=== PATIENT | male | born 1935 | race Caucasian/White ===

== ENCOUNTER 2018-09-18 12:35 | Emergency (ER) | payer MEDICARE, OTHER ==
[~2018-09-18 12:35] MED LIST: ACE325 PO; ALPH100C PO; ALPH50CA5 PO; ASCO-201 PO; CELE-1 PO; CINN500C12 PO; DOC100 PO; DORZ10DR3 OP; ENOX80DI8 SQ; EZET1TAB53 PO; FISH OIL 1,2001 CAP PO; FISH1CAP15 PO; GARL10005 PO; GINK60CA13 PO; GLUC-130 PO; GLUC-198 PO; GLUC1TAB25 PO; GLUT500T PO; ISOM60 PO; ISOS60TA PO; LEVE-14 PO; LEVE500T88 PO; LOR5/325 PO; LOS50 PO; LOSA50TA80 PO; LUTE10TA3 PO; LUTE6CAP11 PO; METO-1 PO; METO-253 PO; MIR PO; MOM PO; MULT-820 PO; MULT-865 PO; NEURO PS PO; OMEG12002 PO; S-AD200T5 PO; SIMV-44 PO; SIMV-54 PO; ST.300CA17 PO; TADA10TA14 PO; TRAV2.5D4 OP; TRIA-20 PO; TRIA1CAP85 PO; TURM500C7 PO; UBID100C33 PO; UBID100C9 PO; VINPOCETINE; VIT1TABL82 PO; WAR5 PO; WARF4TAB47 PO; WARF5TAB23 PO; [UNRECOGNIZED DRUG - CODE] OU; [UNRECOGNIZED DRUG - CODE] PO; [UNRECOGNIZED DRUG - CODE] PO; [UNRECOGNIZED DRUG - OTHER] PO; [UNRECOGNIZED DRUG - OTHER] PO
--- NOTE | 2018-09-18 12:49 | ER Report ---
History and Physical Time Seen By MD: 12:47 HPI/ROS CHIEF COMPLAINT: Loss of left peripheral vision possible stroke HISTORY OF PRESENT ILLNESS: 82-year-old male comes emergency Department a complaint of left-sided visual loss in the left peripheral gaze patient states that he had awoke this morning with normal vision notice shortly upon hours after awakening that his vision became change in his left I unable to see his left peripheral vision patient denies any other symptoms at that time. Patient is a history of a major stroke with resultant aphasia and speech difficulties about 12 years ago some mild TIAs intermittently subsequently since then no chest pain shortness of breath or additional complaints noted aside for visual changes no other focal complaints was given drive himself to the pulmonary physical therapist when his daughter lives that he needed of the operative the emergency room REVIEW OF SYSTEMS: Respiratory: No cough, no dyspnea. Cardiovascular: No chest pain, no palpitations. Gastrointestinal: No vomiting, no abdominal pain. Musculoskeletal: No back pain. Remainder of the 14 system rev: Yes Allergies: Coded Allergies: No Known Drug Allergies (Unverified , 08/10/15) Home Meds Active Scripts Losartan Potassium (LOSARTAN POTASSIUM) 50 Mg Tablet, 1 TAB PO QDAY, #30 TAB 11 Refills Prov:SHONA HALLMAN MD 10/04/16 Levetiracetam (KEPPRA) 500 Mg Tablet, 0.5 TAB PO BID, #90 TAB 3 Refills Prov:SHONA HALLMAN MD 09/06/16 Warfarin Sodium (WARFARIN SODIUM) 5 Mg Tablet, 0.5-1 TAB PO QDAY, #65 TAB 3 Refills [place] 5 MG, M 2.5 MG, Tu 5 MG, W 2.5 MG, Th 5 MG, F 2.5 MG, Sa 5 MG Prov:SHONA HALLMAN MD 08/22/16 Simvastatin (SIMVASTATIN) 40 Mg Tablet, 1 TAB PO HS, #90 TAB 4 Refills Prov:SHONA HALLMAN MD 06/08/16 Metoprolol Tartrate (METOPROLOL TARTRATE) 50 Mg Tab, 0.5 TAB PO BID, #90 TAB 4 Refills Prov:SHONA HALLMAN MD 03/02/16 Triamterene/Hydrochlorothiazid (TRIAMTERENE-HCTZ 37.5-25 MG CP) 1 Each Capsule, 0.5 TAB PO QAM, #45 CAPSULE 1 Refill Prov:SHONA HALLMAN MD 02/21/16 Tadalafil (CIALIS) 10 Mg Tablet, 10 MG PO QDAY PRN for sexual activity, #6 TAB 1 Refill Prov:SHONA HALLMAN MD 08/20/14 Reported Medications Alpha Lipoic Acid (ALPHA LIPOIC ACID) 100 Mg Capsule, 150 MG PO DAILY, CAPSULE 06/26/14 Glutamine (L-GLUTAMINE) 500 Mg Tablet, 1 TAB PO DAILY 06/26/14 Turmeric Root Extract (TURMERIC) 500 Mg Capsule, 1 CAP PO DAILY, CAPSULE 06/26/14 Multivitamin (DAILY MULTIPLE VITAMIN) 1 Each Tablet, 1 TAB PO DAILY 06/26/14 Isosorbide Mononitrate (IMDUR) 60 Mg Tab.er.24h, 1 TAB PO DAILY 06/26/14 Lutein (LUTEIN) 10 Mg Tablet, 1 TAB PO DAILY 06/26/14 Glucosamine/D3/Boswellia Augustina (GLUCOSAMINE COMPLEX TABLET) 1 Each Tablet, 1 TAB PO DAILY 06/26/14 Ubidecarenone (CO Q-10) 100 Mg Capsule, 1 CAP PO DAILY, CAPSULE 06/26/14 Fish Oil/Dha/Epa (FISH OIL 1,200 MG FISH OIL) 1 Each Capsule, 1 CAP PO DAILY, CAPSULE 06/26/14 Reviewed Nurses Notes: Yes Old Medical Records Reviewed: Yes Hx Smoking: No Smoking Status: Never Smoker Hx Alcohol Use: Yes Constitutional Vital Sign - Last 24 Hours 09/18/18 09/18/18 09/18/18 09/18/18 12:35 12:42 12:56 13:00 Temp 97.8 Pulse 67 Resp 18 B/P (MAP) 125/74 163/118 (133) 132/92 (105) 130/82 (98) Pulse Ox 90 O2 Delivery Room Air 09/18/18 09/18/18 09/18/18 09/18/18 13:05 13:15 13:20 13:50 Pulse 63 64 58 Resp 10 17 13 B/P (MAP) 124/75 (91) Pulse Ox 90 87 O2 Delivery Room Air Room Air 09/18/18 09/18/18 09/18/18 09/18/18 13:55 14:10 14:14 14:25 Pulse 60 62 Resp 15 17 24 B/P (MAP) 137/85 (102) Pulse Ox 91 92 92 1/16/19 1/16/19 1/16/19 1/16/19 14:30 14:35 14:45 14:50 Pulse 59 57 Resp 23 10 B/P (MAP) 136/95 (109) 134/99 (111) Pulse Ox 91 95 O2 Delivery Nasal Cannula O2 Flow Rate 2 09/18/18 09/18/18 09/18/18 09/18/18 15:00 15:05 15:15 15:20 Pulse 56 Resp 18 13 B/P (MAP) 136/109 (118) 125/93 (104) Pulse Ox 90 87 O2 Delivery Nasal Cannula Room Air O2 Flow Rate 2 Physical Exam General Appearance: The patient is alert, has no immediate need for airway protection and no current signs of toxicity. [ ] Eyes: Pupils equal and round no injection. Respiratory: Chest is non tender, lungs are clear to auscultation. Cardiac: regular rate and rhythm [ ] Gastrointestinal: Abdomen is soft and non tender, no masses, bowel sounds normal. Musculoskeletal: Neck: Neck is supple and non tender. Extremities have full range of motion and are non tender. Skin: No rashes or lesions. Neuro examination patient with a left sided gaze loss in the left hemisphere otherwise neurovascular intact cranial nerves II through XII intact no focal neurological deficits noted otherwise DIFFERENTIAL DIAGNOSIS: After history and physical exam differential diagnosis was considered for stroke TIA Medical Decision Making Data Points Result Diagram: 09/18/18 1301 09/18/18 1301 Laboratory Hematology Test 09/18/18 13:01 09/18/18 13:36 Red Blood Count 5.52 M/uL (4.00-5.60) Mean Corpuscular Volume 93.8 fL (80.0-96.0) Mean Corpuscular Hemoglobin 31.3 pg (26.0-33.0) Mean Corpuscular Hemoglobin Concent 33.4 g/dL (32.0-36.0) Red Cell Distribution Width 14.6 % (11.5-14.5) Mean Platelet Volume 9.2 fL (7.2-11.1) Neutrophils (%) (Auto) 73.5 % (39.4-72.5) Lymphocytes (%) (Auto) 17.4 % (17.6-49.6) Monocytes (%) (Auto) 7.4 % (4.1-12.4) Eosinophils (%) (Auto) 1.0 % (0.4-6.7) Basophils (%) (Auto) 0.7 % (0.3-1.4) Nucleated RBC Relative Count (auto) 0.1 /100WBC Neutrophils # (Auto) 5.5 K/uL (2.0-7.4) Lymphocytes # (Auto) 1.3 K/uL (1.3-3.6) Monocytes # (Auto) 0.6 K/uL (0.3-1.0) Eosinophils # (Auto) 0.1 K/uL (0.0-0.5) Basophils # (Auto) 0.1 K/uL (0.0-0.1) Nucleated RBC Absolute Count (auto) 0.01 K/uL Sodium Level 137 mmol/L (137-145) Potassium Level 4.8 mmol/L (3.5-5.0) Chloride Level 100 mmol/L (98-107) Carbon Dioxide Level 30 mmol/L (22-30) Blood Urea Nitrogen 28 mg/dl (9-21) Creatinine 1.50 mg/dl (0.66-1.25) Glomerular Filtration Rate Calc 44.6 Random Glucose 109 mg/dl (75-110) Calcium Level 9.3 mg/dl (8.4-10.2) Total Bilirubin 0.9 mg/dl (0.2-1.3) Aspartate Amino Transf (AST/SGOT) 36 U/L (0-35) Alanine Aminotransferase (ALT/SGPT) 31 U/L (0-56) Alkaline Phosphatase 76 U/L (0-126) Troponin I 0.018 ng/ml Total Protein 7.3 g/dl (6.3-8.2) Albumin 4.2 g/dl (3.5-5.0) Prothrombin Time 20.0 seconds (12.0-14.4) Prothromb Time International Ratio 1.68 Activated Partial Thromboplast Time 32 seconds (23-35) Chemistry Test 09/18/18 13:01 09/18/18 13:36 White Blood Count 7.5 k/uL (4.5-11.0) Red Blood Count 5.52 M/uL (4.00-5.60) Hemoglobin 17.3 g/dL (14.0-18.0) Hematocrit 51.8 % (42.0-52.0) Mean Corpuscular Volume 93.8 fL (80.0-96.0) Mean Corpuscular Hemoglobin 31.3 pg (26.0-33.0) Mean Corpuscular Hemoglobin Concent 33.4 g/dL (32.0-36.0) Red Cell Distribution Width 14.6 % (11.5-14.5) Platelet Count 180 K/uL (150-450) Mean Platelet Volume 9.2 fL (7.2-11.1) Neutrophils (%) (Auto) 73.5 % (39.4-72.5) Lymphocytes (%) (Auto) 17.4 % (17.6-49.6) Monocytes (%) (Auto) 7.4 % (4.1-12.4) Eosinophils (%) (Auto) 1.0 % (0.4-6.7) Basophils (%) (Auto) 0.7 % (0.3-1.4) Nucleated RBC Relative Count (auto) 0.1 /100WBC Neutrophils # (Auto) 5.5 K/uL (2.0-7.4) Lymphocytes # (Auto) 1.3 K/uL (1.3-3.6) Monocytes # (Auto) 0.6 K/uL (0.3-1.0) Eosinophils # (Auto) 0.1 K/uL (0.0-0.5) Basophils # (Auto) 0.1 K/uL (0.0-0.1) Nucleated RBC Absolute Count (auto) 0.01 K/uL Glomerular Filtration Rate Calc 44.6 Calcium Level 9.3 mg/dl (8.4-10.2) Total Bilirubin 0.9 mg/dl (0.2-1.3) Aspartate Amino Transf (AST/SGOT) 36 U/L (0-35) Alanine Aminotransferase (ALT/SGPT) 31 U/L (0-56) Alkaline Phosphatase 76 U/L (0-126) Troponin I 0.018 ng/ml Total Protein 7.3 g/dl (6.3-8.2) Albumin 4.2 g/dl (3.5-5.0) Prothrombin Time 20.0 seconds (12.0-14.4) Prothromb Time International Ratio 1.68 Activated Partial Thromboplast Time 32 seconds (23-35) Coagulation Test 09/18/18 13:36 Prothrombin Time 20.0 seconds Prothromb Time International Ratio 1.68 Activated Partial Thromboplast Time 32 seconds ED Course/Re-evaluation ED Course ED clinical course medical decision-making a 2-year-old male who comes in with acute strokelike symptoms with left sided gaze hemic hemiparesis absence of left gaze visual field CT scan shows a right posterior occipital infarct confirmed and CTA due to the timing of it and the position of it is unable to receive either TPA or clot retrieval I will be transferring him to a higher level care to a stroke center for further delineation workup Decision to Disposition Date: Sep 18, 2018 Decision to Disposition Time: 15:33 Depart Departure Latest Vital Signs Vital Signs Date Time Temp Pulse Resp B/P (MAP) Pulse Ox O2 Delivery O2 Flow Rate FiO2 09/18/18 15:20 13 87 Room Air 09/18/18 15:15 125/93 (104) 09/18/18 15:05 56 2 09/18/18 12:35 97.8 Impression: Primary Impression: CVA (cerebrovascular accident) Condition: Improved Disposition: XFER TO ACUTE CARE HOSPITAL Referrals: SHONA HALLMAN MD (PCP) SUSANA MARTINEZ MD Sep 18, 2018 12:49
--- NOTE | 2018-09-18 12:54 | EKG ---
FACILITY: [facility] PATIENT NAME: MINOO DELUNA : [id number] MR: [id number] V: [id number] EXAM DATE: ORDERING PHYSICIAN: SUSANA MARTINEZ TECHNOLOGIST: EMRE Moffett Reason : STROKE Blood Pressure : / mmHG Vent. Rate : 067 BPM Atrial Rate : 067 BPM P-R Int : 236 ms QRS Dur : 148 ms QT Int : 466 ms P-R-T Axes : 050 036 014 degrees QTc Int : 492 ms Sinus rhythm with 1st degree AV block with occasional and consecutive premature ventricular complexes Right bundle branch block Septal infarct , age undetermined Cannot rule out Inferior infarct , age undetermined Abnormal ECG No previous ECGs available Confirmed by CHAPO QUICK ([id number]) on 09/18/2018 4:25:06 PM Referred By: JUAN Confirmed By:CHAPO QUICK
--- NOTE | 2018-09-18 13:10 | RADIOLOGY IMAGING REPORT ---
FACILITY: [facility] PATIENT NAME: Lc Douglas : 1935 MR: [id number] V: [id number] EXAM DATE: ORDERING PHYSICIAN: SUSANA MARTINEZ TECHNOLOGIST: Location: [facility] Patient: Lc Douglas : 1935 Visit/Account:[id number] Date of Sevice: 09/18/2018 Exam type: CHEST SINGLE AP History: stroke sym Comparison: None. Findings: There is no evidence of focal infiltrates, pleural effusions or pulmonary edema. No evidence of a pn eumothorax or pneumomediastinum.. The cardiac silhouette is enlarged. There are sternotomy sutures and prosthetic cardiac valve IMPRESSION: 1. Cardiomegaly with a prosthetic cardiac valve No evidence of acute pulmonary consolidation Report Dictated By: Michelle Boone MD at 09/18/2018 1:05 PM Report E-Signed By: Michelle Boone MD at 09/18/2018 1:06 PM WSN:[email or web address]
[2018-09-18 13:12] LABS: PLATELET COUNT, AUTOMATED 180 K/uL (150-450)
--- NOTE | 2018-09-18 13:33 | RADIOLOGY IMAGING REPORT ---
FACILITY: [facility] PATIENT NAME: Lc Douglas : 1935 MR: [id number] V: [id number] EXAM DATE: ORDERING PHYSICIAN: SUSANA MARTINEZ TECHNOLOGIST: Location: [facility] Patient: Lc Douglas : 1935 Visit/Account:[id number] Date of Sevice: 09/18/2018 EXAMINATION: Head CT without intravenous contrast HISTORY: Stroke symptoms. Left visual field loss. COMPARISON: 04/08/2013. TECHNIQUE: Contiguous axial images were obtained from the skull base to the vertex without intraven ous contrast. Sagittal and coronal reformatted images are also submitted. One of the following dose optimization techniques was utilized in the performance of this exam: Autom ated exposure control; adjustment of the mA and/or kV according to the patient's size; or use of an i terative reconstruction technique. Specific details can be referenced in the facility's radiology C T exam operational policy. FINDINGS: Brain and intracranial structures: There is a region of mildly decreased attenuation in the right oc cipital lobe which is new since the previous examination consistent with acute infarction. Large freight conductor claudy infarct in the left MCA territory. Regions of chronic infarction in the right frontal and parieta l lobes. Small chronic infarcts in the left cerebellar hemisphere. Mild sulcal, ventricular, and cisternal prominence secondary to cerebral volume loss. 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 There is a hyperattenuating nodule measuring 9 x 8 x 7 mm adjacent to the pericallosal lipoma, betwee n the internal cerebral veins and superior to the pineal gland. This is not significantly changed sin ce previous examination in 2012. No midline shift or acute hemorrhage. Vessels: Calcified plaque of the carotid siphons. Calvarium / scalp: Negative. Skull base / visualized face: Leftward deviation of the nasal septum. Visualized sinuses / orbits: Mild mucosal thickening in the left maxillary sinus. IMPRESSION: Acute infarct in the right occipital lobe within the right OIL FIELD LABORER territory. No acute intracranial hemor rhage or midline shift. Multiple chronic cerebral and cerebellar infarcts. There is a hyperattenuating nodular lesion measuring 9 x 8 x 7 mm located between the internal cerebr al veins and superior to the pineal gland. This is not significantly changed since previous CT examin ation in 2012. A proteinaceous cyst or focally dilated vein are the primary differential consideratio ns. These findings of acute infarct were discussed with SUSANA MARTINEZ at 09/18/2018 1:13 PM. Report Dictated By: Cuate Ratliff MD at 09/18/2018 1:06 PM Report E-Signed By: Cuate Ratliff MD at 09/18/2018 1:28 PM WSN:[id number]
[2018-09-18] MEDS ORDERED: NS(*) 0.9% 50 ML BAG 50 ML ONE (13:46)
[2018-09-18] MEDS ORDERED: IOPAMIDOL 76% 100 ML INFUS BTL 100 ML ONE (13:46)
[2018-09-18 13:51] LABS: INR 1.68
--- NOTE | 2018-09-18 14:44 | RADIOLOGY IMAGING REPORT ---
[place] [facility] [place] Lc Douglas : 1935 MR: [id number] V: [id number] EXAM DATE: ORDERING PHYSICIAN: SUSANA MARTINEZ TECHNOLOGIST: [place] [facility] [place] Patient: Lc Douglas : 1935 Visit/Account:[id number] Date of Sevice: 09/18/2018 EXAMINATION: CTA of the Neck with IV contrast CTA of the Head with IV contrast HISTORY: Stroke. Left visual field loss. COMPARISON: Noncontrast head CT from the same day. TECHNIQUE: Overlapping thin sections were obtained during a bolus of IV contrast from the aortic ar ch through the vertex. Reconstruction of the source data set includes multiplanar 2D in the sagittal and coronal planes, and 3D coronal thin slab MIP series. Compliance Aide images have been stored on PA CS. Stenosis of the internal carotid arteries are calculated using NASCET criteria. CONTRAST: 75 mL of IV Isovue-370 One of the following dose optimization techniques was utilized in the performance of this exam: Autom ated exposure control; adjustment of the mA and/or kV according to the patient's size; or use of an i terative reconstruction technique. Specific details can be referenced in the facility's radiology C T exam operational policy. FINDINGS: Aortic arch and great vessels: Mild mixed plaque at the aortic arch. Right CCA/ICA: Mild mixing artifact in the right carotid bulb. Mild plaque at the right carotid bul b without flow-limiting stenosis. 0% stenosis of the origin of the right ICA. Mild calcified plaque o f the right carotid siphon without flow-limiting stenosis. Left CCA/ICA: Mild mixing artifact in the left carotid bulb and origin of the left ICA. Mild plaque at the origin of the left ICA and at the left carotid bulb without flow-limiting stenosis. 0% stenos is of the origin of the left ICA. Mild calcification of the left carotid siphon without flow-limiting stenosis. Vertebrobasilar: The right vertebral artery is dominant. The left vertebral artery is diffusely sma ll caliber, a normal congenital variation. Distal to the origin of the left PICA, the left vertebral artery is very diminutive. The basilar artery is patent and normal in caliber. [place]: The posterior communicating arteries are hypoplastic or absent. The anterior comm unicating artery is unremarkable. RANJANA circulation: Negative. MCA circulation: Negative. 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 Additional non-angiographic findings: Prior sternotomy with sternal wires. Advanced multilevel disc and facet degenerative changes in the c ervical spine. Redemonstrates of a curvilinear callosal lipoma. Long-term stable hyperattenuating nod ular lesion between the internal cerebral veins and superior to the pineal gland measuring 9 x 8 x 7 mm. 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 Long-term stable hyperattenuating nodular lesion between the internal cerebral veins and spirit to th e pineal gland measuring 9 x 8 x 7 mm. Primary differential considerations would include a proteinace ous cyst or focally dilated vein. These findings of occlusion of a branch of the right posterior cerebral artery were discussed with BRAD MARTINEZ at 09/18/2018 2:29 PM. Report Dictated By: Cuate Ratliff MD at 09/18/2018 2:21 PM Report E-Signed By: Cuate Ratliff MD at 09/18/2018 2:40 PM WSN:[id number]
--- NOTE | 2018-09-18 14:47 | RADIOLOGY IMAGING REPORT ---
FACILITY: [facility] PATIENT NAME: Lc Douglas : 1935 MR: [id number] V: [id number] EXAM DATE: ORDERING PHYSICIAN: SUSANA MARTINEZ TECHNOLOGIST: Location: [facility] Patient: Lc Douglas : 1935 Visit/Account:[id number] Date of Sevice: 09/18/2018 EXAMINATION: CTA of the Neck with IV contrast CTA of the Head with IV contrast HISTORY: Stroke. Left visual field loss. COMPARISON: Noncontrast head CT from the same day. TECHNIQUE: Overlapping thin sections were obtained during a bolus of IV contrast from the aortic ar ch through the vertex. Reconstruction of the source data set includes multiplanar 2D in the sagittal and coronal planes, and 3D coronal thin slab MIP series. Personal Computer Network Engineer images have been stored on PA CS. Stenosis of the internal carotid arteries are calculated using NASCET criteria. CONTRAST: 75 mL of IV Isovue-370 One of the following dose optimization techniques was utilized in the performance of this exam: Autom ated exposure control; adjustment of the mA and/or kV according to the patient's size; or use of an i terative reconstruction technique. Specific details can be referenced in the facility's radiology C T exam operational policy. FINDINGS: Aortic arch and great vessels: Mild mixed plaque at the aortic arch. Right CCA/ICA: Mild mixing artifact in the right carotid bulb. Mild plaque at the right carotid bul b without flow-limiting stenosis. 0% stenosis of the origin of the right ICA. Mild calcified plaque o f the right carotid siphon without flow-limiting stenosis. Left CCA/ICA: Mild mixing artifact in the left carotid bulb and origin of the left ICA. Mild plaque at the origin of the left ICA and at the left carotid bulb without flow-limiting stenosis. 0% stenos is of the origin of the left ICA. Mild calcification of the left carotid siphon without flow-limiting stenosis. Vertebrobasilar: The right vertebral artery is dominant. The left vertebral artery is diffusely sma ll caliber, a normal congenital variation. Distal to the origin of the left PICA, the left vertebral artery is very diminutive. The basilar artery is patent and normal in caliber. [place]: The posterior communicating arteries are hypoplastic or absent. The anterior comm unicating artery is unremarkable. RANJANA circulation: Negative. MCA circulation: Negative. 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 Additional non-angiographic findings: Prior sternotomy with sternal wires. Advanced multilevel disc and facet degenerative changes in the c ervical spine. Redemonstrates of a curvilinear callosal lipoma. Long-term stable hyperattenuating nod ular lesion between the internal cerebral veins and superior to the pineal gland measuring 9 x 8 x 7 mm. 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 Long-term stable hyperattenuating nodular lesion between the internal cerebral veins and spirit to th e pineal gland measuring 9 x 8 x 7 mm. Primary differential considerations would include a proteinace ous cyst or focally dilated vein. These findings of occlusion of a branch of the right posterior cerebral artery were discussed with BRAD MARTINEZ at 09/18/2018 2:29 PM. Report Dictated By: Cuate Ratliff MD at 09/18/2018 2:42 PM Report E-Signed By: Cuate Ratliff MD at 09/18/2018 2:43 PM WSN:[id number]
[2018-09-18] MEDS ORDERED: cloNIDine HCL 0.1 MG TAB PO ONE (16:05)
[2018-09-18] MEDS ORDERED: METOPROLOL SUCC XL 25 MG TABCR PO ONE (16:55)
[2018-09-18] MEDS ORDERED: METOPROLOL TART 50 MG TAB PO ONE (17:00)
[2018-09-18 17:15] VITALS: BP 138/94
== END 2018-09-18 17:24 | disposition short-term general hospital (02) ==
LOC: ER 12:42
DX: I63.9 Cerebral infarction, unspecified (principal); I44.0 Atrioventricular block, first degree; I45.10 Unspecified right bundle-branch block
CPT/HCPCS: 36416; 70450; 70496; 70498; 71045; 82948; 84484; 85025; 85610; 85730; 93005; 99285; A9270; J7050; Q9967; 82040; 82247; 82310; 82374; 82435; 82565; 82947; 84075; 84132; 84155; 84295; 84450; 84460; 84520